=== PATIENT | male | born 1980 | race Caucasian/White ===

== ENCOUNTER 2017-01-28 21:40 | Emergency (ER) | payer MEDICAID, OTHER ==
[2017-01-28 21:40] VITALS: BMI 25.1
[2017-01-28 22:02] VITALS: BP 137/83; PULSE 88; RESP 18; TEMP 98.7; O2SAT 96
--- NOTE | 2017-01-28 23:00 | C.PDOC ---
History Of Present Illness Pt was BIBEMS due to public alcohol intoxication. Time Seen by Provider: 01/28/17 22:29 Chief Complaint (Nursing): Substance Abuse History Per: Patient, EMS History/Exam Limitations: intoxication Onset/Duration Of Symptoms: Unknown (tonight) Current Symptoms Are (Timing): Still Present Suicide/Self Injury Attempted (Context): None Modifying Factor(s): Alcohol Severity: Moderate Associated Symptoms: denies: Suicidal Thoughts, Suicidal Plan Additional History Per: Prior Records Past Medical History Reviewed: Historical Data, Nursing Documentation, Vital Signs Vital Signs: Last Vital Signs Temp 98.7 F 01/28/17 22:01 Pulse 88 01/28/17 22:01 Resp 18 01/28/17 22:01 BP 137/83 01/28/17 22:01 Pulse Ox 96 01/28/17 22:01 - Medical History PMH: No Chronic Diseases Surgical History: Appendectomy - [facility] Procedures APPLICATION OF SPLINT (07/27/14) Family History: States: Unknown Family Hx - Social History Hx Alcohol Use: Yes Hx Substance Use: Yes - Immunization History Hx Tetanus Toxoid Vaccination: No Hx Influenza Vaccination: No Hx Pneumococcal Vaccination: No Review Of Systems Constitutional: Negative for: Fever Cardiovascular: Negative for: Chest Pain Respiratory: Negative for: Shortness of Breath Gastrointestinal: Negative for: Vomiting, Abdominal Pain Musculoskeletal: Negative for: Neck Pain Skin: Negative for: Rash Neurological: Negative for: Weakness, Numbness, Seizures, Headache Psych: Negative for: Psychosis Physical Exam - Physical Exam Appears: No Acute Distress, Other (AOB) Skin: Normal Color, Warm, Dry Head: Atraumatic Eye(s): bilateral: PERRL, EOMI Neck: Normal ROM, No Midline Cervical Tenderness, No Step Off Deformity, Supple Chest: Symmetrical, No Deformity Cardiovascular: Rhythm Regular Respiratory: Normal Breath Sounds, No Accessory Muscle Use Gastrointestinal/Abdominal: Soft, No Tenderness Extremity: Normal ROM, No Deformity Neurological/Psych: Oriented x3, Normal Motor, Normal Sensation Gait: Steady ED Course And Treatment O2 Sat by Pulse Oximetry: 96 Pulse Ox Interpretation: Normal Progress Note: Pt wants to go home right now and states he is taking a taxi home. He is [employer] and knows his address and is able to ambulate with a steady gait. Reassessment Condition: Improved Disposition Counseled Patient/Family Regarding: Diagnosis, Need For Followup - Disposition Disposition: HOME/ ROUTINE Disposition Time: 23:01 Condition: STABLE Additional Instructions: Avoid alcohol. Follow up with your doctor. Return to the ER if you develop worsening of symptoms or if you have any other concerns. Instructions: Alcohol Intoxication (ED) - Clinical Impression Clinical Impression: Alcohol intoxication
== END 2017-01-28 23:19 | disposition home or self-care (01) ==
LOC: C.ER 21:40
DX: F10.129 Alcohol abuse with intoxication, unspecified (principal)